=== PATIENT | female | born 1935 | race Caucasian/White ===

== ENCOUNTER → 2016-04-06 | Outpatient (CLI) | payer OTHER, MEDICARE ==
[~2016-04-06] MED LIST: LIPITOR40 MG PO; LO-DOSE ASPIRIN81 M2 PO; NORPACE100 MG PO; PRAVACHOL80 MG PO; VENTOLIN HFA18 GM IH; XANAX0.5 MG PO; ZOLOFT100 MG PO
== END | disposition home or self-care (01) ==
LOC: NUC 10:00
DX: R94.8 Abnormal results of function studies of other organs and systems (principal); M79.604 Pain in right leg; M79.605 Pain in left leg; R63.4 Abnormal weight loss; F17.200 Nicotine dependence, unspecified, uncomplicated
CPT/HCPCS: 78306; A9503